=== PATIENT | male | born 1975 | race Caucasian/White ===

== ENCOUNTER 2018-06-26 03:32 | Emergency (ER) | payer SELFPAY ==
[~2018-06-26] VITALS: Ht 172.7 cm; Wt 75.0 kg
[2018-06-26] MEDS ORDERED: TETRACAINE 0.5% OPHTH DROPS 4ML BOTHEYE ONE (04:15)
[2018-06-26] MEDS ORDERED: TETANUS, DIPHTHERIA, PERTUSSIS VAC/PF 0.5ML (>7YR OLD) IM ONE (04:15)
[2018-06-26] MEDS ORDERED: GENTAMICIN 0.3% OPHTH DROPS 5ML BOTHEYE ONE (04:15)
[2018-06-26] MEDS ORDERED: TETRACAINE 0.5% OPHTH DROPS 4ML EACHEYE ONE (05:15)
[2018-06-26 05:50] VITALS: BP 113/65
== END 2018-06-26 06:00 | disposition home or self-care (01) ==
LOC: ER 04:06
DX: H16.133 Photokeratitis, bilateral (principal)
CPT/HCPCS: 90471; 90715; 99284; A4217; Z7610

== ENCOUNTER 2019-06-24 05:27 | Emergency (ER) | payer SELFPAY ==
[~2019-06-24] VITALS: Ht 160 cm; Wt 81.6 kg
[2019-06-24] MEDS ORDERED: TETRACAINE 0.5% OPHTH DROPS 4ML BOTHEYE ONE (06:45)
[2019-06-24] MEDS ORDERED: FLUORESCEIN SODIUM 1MG/STRIP BOTHEYE ONE (06:45)
[2019-06-24] MEDS ORDERED: IBUPROFEN 600MG TABLET PO ONE (06:45)
[2019-06-24] MEDS ORDERED: TETANUS, DIPHTHERIA, PERTUSSIS VAC/PF 0.5ML (>7YR OLD) IM ONE (07:15)
[2019-06-24 09:10] VITALS: BP 120/78
== END 2019-06-24 09:10 | disposition home or self-care (01) ==
LOC: ER 05:27
DX: S05.12XA Contusion of eyeball and orbital tissues, left eye, initial encounter (principal); S05.11XA Contusion of eyeball and orbital tissues, right eye, initial encounter; X58.XXXA Exposure to other specified factors, initial encounter; Y93.9 Activity, unspecified
CPT/HCPCS: 70486; 90715; 96372; 99284